=== PATIENT | female | born 1940 | race Caucasian/White ===

== ENCOUNTER 2017-03-27 08:17 | Inpatient (IN) | payer OTHER ==
[2017-03-27] VITALS (10 sets, daily range): BP systolic 77–135; BP diastolic 50–79
[~2017-03-27] VITALS: Ht 152.4 cm; Wt 83.0 kg
[~2017-03-27 08:17] MED LIST: AMARYL2 MG PO; ATENOLOL50 MG PO; BETHANECHOL CHL25 MG PO; CARDIZEM CD180 MG PO; CELEBREX200 MG PO; CLOPIDOGREL75 MG PO; COLACE50 MG PO; Coumadin,Jantoven PO; DEXAMETHASONE4 MG PO; Dulcolax PO; ELIQUIS5 MG PO; Ecotrin PO; FUROSEMIDE40 MG PO; Feosol PO; GLUCOPHAGE500 MG PO; Glucophage PO; HYDROCHLOROTHIA25 MG PO; HYDROCODON-ACE1 EAC8 PO; Hydrodiuril,Oretic,E PO; K-DUR10 MEQ PO; K-DUR20 MEQ PO; KLOR-CON M2020 MEQ PO; KLOR-CON SPRIN10 MEQ PO; LEVAQUIN750 MG PO; LEVOTHYROXINE125 MCG PO; LEVOTHYROXINE137 MCG PO; LEVOXYL175 MCG PO; LOPRESSOR25 MG PO; LOPRESSOR50 MG PO; LOSARTAN POTAS100 MG PO; Levothroid,Synthroid PO; MEDROL DOSEPAK4 MG PO; METFORMIN HCL500 MG PO; METFORMIN HCL850 MG PO; METOPROLOL TART25 MG PO; MUPIROCIN22 GM TP; NEURONTIN100 MG PO; NORCO 5/3251 TABLET PO; PERCOCET 5/31 TABLET PO; PRAVACHOL40 MG PO; PRAVASTATIN SOD40 MG PO; PROCHLORPERAZIN10 MG PO; Percocet 5/325,Endoc PO; Proventil,Ventolin H IH; Senokot S,Pericolace PO; TRAMADOL HCL50 MG PO; Tenormin PO; URECHOLINE25 MG PO; Urecholine PO; VALTREX1000 MG PO; VENTOLIN HFA18 GM IH; VICODIN 5-3001 EACH PO; Vitamin B-12 PO; Vitamin D PO; ZOFRAN4 MG PO; Zocor PO; celeBREX PO
[2017-03-27] MEDS ORDERED: COMPAZINE10 MG PO ×2 (09:07→18:18)
[2017-03-27 10:26] LABS: HEMATOCRIT 40.4 % (36.0-46.0); MCH 33.8 PG (29.0-34.0); MCHC 32.2 G/DL (30.0-36.0); MCV 104.9 FL (83-99); NRBC (%) 1.6 /100 WBC (0-0); RBC DIS.WIDTH-CV 19.9 % (11.8-14.6); RBC DIS.WIDTH-SD 69.2 % (39-53); RED BLOOD COUNT 3.85 M/uL (3.80-5.20)
[2017-03-27 10:30] LABS: WHITE BLOOD COUNT 11.3 K/uL (4.1-10.2)
[2017-03-27 10:31] LABS: PLATELET COUNT 134 K/uL (156-360)
[2017-03-27 10:36] LABS: CHLORIDE 101 mEq/L (99-109); POTASSIUM 3.8 mEq/L (3.7-5.4); SODIUM 139 mEq/L (136-147)
[2017-03-27 10:39] LABS: GLUCOSE 122 mg/dL (70-99)
[2017-03-27 10:40] LABS: ANION GAP 13 MEQ/L (2-14)
[2017-03-27 10:41] LABS: TOTAL BILIRUBIN 0.8 mg/dL (0.0-1.0)
[2017-03-27 10:42] LABS: ALKALINE PHOSPHATASE 108 IU/L (3-129); GFR ESTIMATE (CALCULATED) > 59 mL/min/
[2017-03-27 10:43] LABS: UREA NITROGEN (BUN) 23 mg/dL (9-23)
[2017-03-27 10:46] LABS: LIPASE 23 U/L (1.0-51.0)
[2017-03-27 10:48] LABS: TROP-I INTERPRETATION NEGATIVE; TROPONIN-I < 0.01 ng/mL (0.0-0.30)
[2017-03-27 11:54] LABS: BASE EXCESS -0.3 mEq/L (-3 to +3); BICARBONATE 28.5 mEq/L (22-26); CARBOXY HGB 2.7 % (0-5); COMMENTS - BLOOD GASES A+C+; DEVICE NC; METHEMOGLOBIN 0.8 % (0-1.5); O2 FLOW 5 L/MIN; PCO2 65 mm Hg (35-45); PO2 80 mm Hg (80-100); SITE RRA; pH 7.25 (7.35-7.45)
[2017-03-27 12:34] LABS: ADD MIUA? YES; BILIRUBIN NEGATIVE; BLOOD MODERATE; COLOR YELLOW ((YELLOW)); GLUCOSE (STRIP) NEGATIVE; KETONES NEGATIVE; LEUKOCYTES NEGATIVE; NITRITE NEGATIVE; PROTEIN (STRIP) >=500; SPECIFIC GRAVITY 1.026 (1.000-1.030); UROBILINOGEN 0.2 MG/DL (0.2-1.0)
[2017-03-27 12:42] LABS: BACTERIA NONE SEEN /HPF; EPITHELIAL CELLS RARE /HPF; HYALINE CASTS 0-5 /LPF; MUCUS TRACE /LPF; RED BLOOD CELLS 0-5 /HPF (0-5)
[2017-03-27 14:52] LABS: BASE EXCESS 0.3 mEq/L (-3 to +3); BICARBONATE 25.4 mEq/L (22-26); CARBOXY HGB 2.2 % (0-5)
[2017-03-27 14:53] LABS: COMMENTS - BLOOD GASES A+C+; DEVICE VENT; FI02 70 %; MECHANICAL RATE 16 resp/min; MODE AC; PCO2 42 mm Hg (35-45); PEEP 8 CM/H20; PO2 237 mm Hg (80-100); SITE LR; TIDAL VOLUME 450 ML; TOTAL RESP RATE 16 resp/min; pH 7.39 (7.35-7.45)
[2017-03-27] MEDS ORDERED: LASIX80 MG PO (18:14)
[2017-03-27] MEDS ORDERED: CARDIZEM CD,CA180 MG PO (18:14)
[2017-03-27] MEDS ORDERED: PROAIR HFA8.5 GM IH ×2 (18:15→18:16)
[2017-03-27] MEDS ORDERED: LEVO-T175 MCG PO (18:15)
[2017-03-27] MEDS ORDERED: LORTAB 7.5-3251 EACH PO (18:16)
[2017-03-27] MEDS ORDERED: LOPRESSOR50 MG PO (18:16)
[2017-03-27] MEDS ORDERED: KLOR-CON M2020 MEQ PO (18:19)
[2017-03-27] MEDS ORDERED: ASPIRIN325 MG PO (18:21)
[2017-03-27 18:24] LABS: METH RESISTANT S AUREUS PCR NEGATIVE (NEGATIVE)
[2017-03-27 18:26] LABS: PROBE CHECK PASS; SPECIMEN PROCESSING CONTROL PASS
[2017-03-27 21:41] LABS: CHLORIDE 101 mEq/L (99-109); POTASSIUM 4.5 mEq/L (3.7-5.4); SODIUM 138 mEq/L (136-147)
[2017-03-27 21:42] LABS: MAGNESIUM 1.6 mg/dL (1.3-2.7)
[2017-03-27 21:45] LABS: ANION GAP 15 MEQ/L (2-14)
[2017-03-27 21:47] LABS: GFR ESTIMATE (CALCULATED) 57 mL/min/
[2017-03-27 21:48] LABS: UREA NITROGEN (BUN) 25 mg/dL (9-23)
[2017-03-27 21:49] LABS: GLUCOSE 210 mg/dL (70-99)
[2017-03-28] VITALS (20 sets, daily range): BP systolic 87–134; BP diastolic 47–82
[2017-03-28 04:58] LABS: HEMATOCRIT 30.3 % (36.0-46.0); MCH 34.1 PG (29.0-34.0); MCV 103.4 FL (83-99); MEAN PLAT.VOLUME 10.6 uM^3 (9.5-12.4); NRBC (%) 1.2 /100 WBC (0-0); PLATELET COUNT 143 K/uL (156-360); RBC DIS.WIDTH-CV 19.9 % (11.8-14.6); RBC DIS.WIDTH-SD 67.3 % (39-53); WHITE BLOOD COUNT 10.8 K/uL (4.1-10.2)
[2017-03-28 04:59] LABS: RED BLOOD COUNT 2.93 M/uL (3.80-5.20)
[2017-03-28 05:07] LABS: INTER. NORMALIZED RATIO 1.3; PROTHROMBIN TIME 12.8 (9.2-11.2)
[2017-03-28 05:11] LABS: CHLORIDE 102 mEq/L (99-109); POTASSIUM 4.4 mEq/L (3.7-5.4); SODIUM 137 mEq/L (136-147)
[2017-03-28 05:13] LABS: GLUCOSE 209 mg/dL (70-99)
[2017-03-28 05:14] LABS: ANION GAP 13 MEQ/L (2-14)
[2017-03-28 05:17] LABS: GFR ESTIMATE (CALCULATED) 51 mL/min/
[2017-03-28 05:18] LABS: UREA NITROGEN (BUN) 29 mg/dL (9-23)
[2017-03-28 05:29] LABS: ALKALINE PHOSPHATASE 70 IU/L (3-129); MAGNESIUM 2.1 mg/dL (1.3-2.7); TOTAL BILIRUBIN 0.5 mg/dL (0.0-1.0)
[2017-03-28 10:28] LABS: BASE EXCESS -0.3 mEq/L (-3 to +3); BICARBONATE 25.9 mEq/L (22-26); CARBOXY HGB 2.3 % (0-5); METHEMOGLOBIN 1.5 % (0-1.5); pH 7.34 (7.35-7.45)
[2017-03-28 10:31] LABS: COMMENTS - BLOOD GASES RSBI=144; DEVICE 840; FI02 30 %; MODE TUBE COMPENSATION; PCO2 48 mm Hg (35-45); PO2 63 mm Hg (80-100); SITE LR
[2017-03-28 10:32] LABS: CONTINUOUS POS AIRWAY PRESSURE 5 cm H2O; TOTAL RESP RATE 35 resp/min
[2017-03-29] VITALS (23 sets, daily range): BP systolic 0–148; BP diastolic 0–85
[2017-03-29 02:18] LABS: HEMATOCRIT 31.9 % (36.0-46.0); MCH 33.9 PG (29.0-34.0); MCHC 32.9 G/DL (30.0-36.0); MCV 102.9 FL (83-99); NRBC (%) 0.5 /100 WBC (0-0); RBC DIS.WIDTH-CV 20.8 % (11.8-14.6); RBC DIS.WIDTH-SD 70.8 % (39-53)
[2017-03-29 02:20] LABS: PLATELET COUNT 188 K/uL (156-360); WHITE BLOOD COUNT 14.8 K/uL (4.1-10.2)
[2017-03-29 02:21] LABS: CHLORIDE 103 mEq/L (99-109); POTASSIUM 4.1 mEq/L (3.7-5.4); SODIUM 137 mEq/L (136-147)
[2017-03-29 02:22] LABS: CHLORIDE 104 mEq/L (99-109); MAGNESIUM 2.6 mg/dL (1.3-2.7); POTASSIUM 4.1 mEq/L (3.7-5.4); SODIUM 139 mEq/L (136-147)
[2017-03-29 02:23] LABS: GLUCOSE 210 mg/dL (70-99)
[2017-03-29 02:24] LABS: ANION GAP 13 MEQ/L (2-14); GLUCOSE 213 mg/dL (70-99)
[2017-03-29 02:25] LABS: ANION GAP 14 MEQ/L (2-14)
[2017-03-29 02:27] LABS: GFR ESTIMATE (CALCULATED) 33 mL/min/
[2017-03-29 02:28] LABS: GFR ESTIMATE (CALCULATED) 33 mL/min/; UREA NITROGEN (BUN) 42 mg/dL (9-23)
[2017-03-29 02:29] LABS: UREA NITROGEN (BUN) 38 mg/dL (9-23)
[2017-03-29 08:45] LABS: POINT-OF-CARE USER ID 612031313
[2017-03-29 12:30] LABS: POINT-OF-CARE USER ID 612031313
[2017-03-29 18:00] LABS: POINT-OF-CARE USER ID 612031313
[2017-03-30] VITALS (24 sets, daily range): BP systolic 111–143; BP diastolic 60–104
[2017-03-30 00:57] LABS: POINT-OF-CARE USER ID PHATLC
[2017-03-30 05:22] LABS: HEMATOCRIT 32.8 % (36.0-46.0); MCH 35.7 PG (29.0-34.0); MCHC 34.1 G/DL (30.0-36.0); MCV 104.5 FL (83-99); MEAN PLAT.VOLUME 10.3 uM^3 (9.5-12.4); NRBC (%) 0.3 /100 WBC (0-0); PLATELET COUNT 182 K/uL (156-360); RBC DIS.WIDTH-CV 21.2 % (11.8-14.6); RBC DIS.WIDTH-SD 77.1 % (39-53); RED BLOOD COUNT 3.14 M/uL (3.80-5.20)
[2017-03-30 05:23] LABS: POINT-OF-CARE METER ID UU13113731
[2017-03-30 05:48] LABS: ANION GAP 15 MEQ/L (2-14); CHLORIDE 101 MEQ/L (99-109); GFR ESTIMATE (CALCULATED) 27 mL/min/; GLUCOSE 209 mg/dL (70-99); MAGNESIUM 2.8 mg/dl (1.3-2.7); SAMPLE HEMOLYSIS CHECK 0; SAMPLE ICTERIC CHECK 0; SAMPLE LIPEMIA CHECK 0; SODIUM 137 MEQ/L (136-147); UREA NITROGEN (BUN) 54 mg/dL (9-23)
[2017-03-30 12:32] LABS: POINT-OF-CARE METER ID UU13113731
[2017-03-30 12:49] LABS: ADD MIUA? YES; BILIRUBIN NEGATIVE; BLOOD SMALL; COLOR YELLOW ((YELLOW)); GLUCOSE (STRIP) NEGATIVE; KETONES NEGATIVE; LEUKOCYTES NEGATIVE; NITRITE NEGATIVE; PROTEIN (STRIP) NEGATIVE; SPECIFIC GRAVITY 1.011 (1.000-1.030); UROBILINOGEN 0.2 MG/DL (0.2-1.0)
[2017-03-30 13:05] LABS: UR CREATININE CONCENTRATION 38.3 MG/DL
[2017-03-30 13:06] LABS: UR CREATININE CONCENTRATION 37.9 MG/DL
[2017-03-30 13:24] LABS: BACTERIA NONE SEEN /HPF; CALCIUM OXALATE CRYSTALS 1+ /HPF; EPITHELIAL CELLS RARE /HPF; MUCUS TRACE /LPF; RED BLOOD CELLS 15-20 /HPF (0-5); UCUL ADDED? NO; WHITE BLOOD CELLS 0-5 /HPF (0-5)
[2017-03-30 18:13] LABS: POINT-OF-CARE METER ID UU13113731
[2017-03-31] VITALS (18 sets, daily range): BP systolic 105–146; BP diastolic 54–97
[2017-03-31 00:33] LABS: POINT-OF-CARE METER ID UU13113731; POINT-OF-CARE USER ID PHATLC
[2017-03-31 05:52] LABS: POINT-OF-CARE METER ID UU14162636; POINT-OF-CARE USER ID PHATLC
[2017-03-31 06:13] LABS: HEMATOCRIT 36.2 % (36.0-46.0); MCH 35.3 PG (29.0-34.0); MCHC 33.4 G/DL (30.0-36.0); MCV 105.5 FL (83-99); NRBC (%) 0.2 /100 WBC (0-0); RBC DIS.WIDTH-CV 20.9 % (11.8-14.6); RBC DIS.WIDTH-SD 78.5 % (39-53); RED BLOOD COUNT 3.43 M/uL (3.80-5.20)
[2017-03-31 06:17] LABS: PLATELET COUNT 244 K/uL (156-360); WHITE BLOOD COUNT 21.1 K/uL (4.1-10.2)
[2017-03-31 06:44] LABS: ANION GAP 13 MEQ/L (2-14); CHLORIDE 98 MEQ/L (99-109); GFR ESTIMATE (CALCULATED) 33 mL/min/; GLUCOSE 211 mg/dL (70-99); MAGNESIUM 2.5 mg/dl (1.3-2.7); POTASSIUM 3.7 MEQ/L (3.7-5.4); SAMPLE HEMOLYSIS CHECK 0; SAMPLE ICTERIC CHECK 0; SAMPLE LIPEMIA CHECK 0; SODIUM 135 MEQ/L (136-147); UREA NITROGEN (BUN) 57 mg/dL (9-23)
[2017-03-31 11:15] LABS: BASE EXCESS -0.2 mEq/L (-3 to +3); CARBOXY HGB 2.6 % (0-5); METHEMOGLOBIN 1.5 % (0-1.5); PCO2 37 mm Hg (35-45); PO2 83 mm Hg (80-100); pH 7.42 (7.35-7.45)
[2017-03-31 11:16] LABS: COMMENTS - BLOOD GASES A+C+; CONTINUOUS POS AIRWAY PRESSURE 5 cm H2O; DEVICE VENT; FI02 30 %; MODE SPONT; PRES. SUPPORT 10 CM/H2O; SITE LR; TOTAL RESP RATE 23 resp/min
[2017-03-31 12:28] LABS: POINT-OF-CARE METER ID UU13113731
[2017-03-31 17:27] LABS: POINT-OF-CARE METER ID UU14162636
[2017-04-01] VITALS (23 sets, daily range): BP systolic 119–182; BP diastolic 67–107
[2017-04-01 01:00] LABS: POINT-OF-CARE METER ID UU13113731
[2017-04-01 06:01] LABS: HEMATOCRIT 38.8 % (36.0-46.0); MCHC 32.5 G/DL (30.0-36.0); MCV 104.6 FL (83-99); MEAN PLAT.VOLUME 10.5 uM^3 (9.5-12.4); NRBC (%) 0.1 /100 WBC (0-0); PLATELET COUNT 281 K/uL (156-360); RBC DIS.WIDTH-CV 20.7 % (11.8-14.6); RBC DIS.WIDTH-SD 77.3 % (39-53); RED BLOOD COUNT 3.71 M/uL (3.80-5.20); WHITE BLOOD COUNT 24.4 K/uL (4.1-10.2)
[2017-04-01 07:11] LABS: ANION GAP 15 MEQ/L (2-14); CHLORIDE 96 MEQ/L (99-109); GFR ESTIMATE (CALCULATED) 46 mL/min/; GLUCOSE 229 mg/dL (70-99); SAMPLE HEMOLYSIS CHECK 0; SAMPLE ICTERIC CHECK 0; SAMPLE LIPEMIA CHECK 0; SODIUM 137 MEQ/L (136-147); UREA NITROGEN (BUN) 49 mg/dL (9-23)
[2017-04-01 07:15] LABS: MAGNESIUM 2.1 mg/dl (1.3-2.7)
[2017-04-01 11:47] LABS: BASE EXCESS 6.4 mEq/L (-3 to +3); BICARBONATE 31.3 mEq/L (22-26); CARBOXY HGB 2.5 % (0-5); METHEMOGLOBIN 1.6 % (0-1.5); PCO2 45 mm Hg (35-45); PO2 89 mm Hg (80-100); pH 7.45 (7.35-7.45)
[2017-04-01 11:48] LABS: COMMENTS - BLOOD GASES NEG A+C+; DEVICE 980 PB; FI02 30 %; MODE TC; PEEP 5 CM/H20; SITE RR; TOTAL RESP RATE 18 resp/min
[2017-04-01 14:54] LABS: TYPE OF FLUID PLEURAL
[2017-04-01 15:33] LABS: BODY FLUID LDH 124 IU/L
[2017-04-01 16:08] LABS: BODY FLUID EOSINOPHILS 0 % (0-25); BODY FLUID RBC'S 4000 /MM^3 (0-100); BODY FLUID WBC'S 135 /MM^3 (0-500); COMMENT MODERATE MACROPHAGES FEW MESOTHELIALS; MONONUCLEAR WBC'S 55 %; POLYNUCLEAR WBC'S 45 % (0-25)
[2017-04-01 17:54] LABS: POINT-OF-CARE USER ID 606021424
[2017-04-02] VITALS (17 sets, daily range): BP systolic 133–192; BP diastolic 62–144
[2017-04-02 01:21] LABS: POINT-OF-CARE METER ID UU14162636
[2017-04-02 08:46] LABS: HEMATOCRIT 48.1 % (36.0-46.0); MCH 33.8 PG (29.0-34.0); MCV 105.7 FL (83-99); MEAN PLAT.VOLUME 10.2 uM^3 (9.5-12.4); NRBC (%) 0.1 /100 WBC (0-0); RBC DIS.WIDTH-CV 20.8 % (11.8-14.6); RBC DIS.WIDTH-SD 78.7 % (39-53)
[2017-04-02 08:47] LABS: PLATELET COUNT 441 K/uL (156-360); RED BLOOD COUNT 4.55 M/uL (3.80-5.20); WHITE BLOOD COUNT 32.7 K/uL (4.1-10.2)
[2017-04-02 09:17] LABS: CHLORIDE 99 mEq/L (99-109); SODIUM 140 mEq/L (136-147)
[2017-04-02 09:20] LABS: GLUCOSE 143 mg/dL (70-99)
[2017-04-02 09:21] LABS: ANION GAP 12 MEQ/L (2-14)
[2017-04-02 09:23] LABS: GFR ESTIMATE (CALCULATED) 51 mL/min/
[2017-04-02 09:24] LABS: UREA NITROGEN (BUN) 47 mg/dL (9-23)
[2017-04-02 09:25] LABS: MAGNESIUM 2.1 mg/dL (1.3-2.7); POTASSIUM 4.2 mEq/L (3.7-5.4)
[2017-04-02 11:15] LABS: URIC ACID 12.9 mg/dL (3.1-9.2)
[2017-04-02 12:52] LABS: POINT-OF-CARE METER ID UU14174217
[2017-04-02 18:24] LABS: POINT-OF-CARE METER ID UU14174217
[2017-04-02 23:25] LABS: POINT-OF-CARE METER ID UU13113731
[2017-04-03] VITALS (12 sets, daily range): BP systolic 132–192; BP diastolic 78–110
[2017-04-03 07:13] LABS: HEMATOCRIT 45.8 % (36.0-46.0); MCH 34.3 PG (29.0-34.0); MCHC 31.9 G/DL (30.0-36.0); MCV 107.5 FL (83-99); MEAN PLAT.VOLUME 10.3 uM^3 (9.5-12.4); NRBC (%) 0.1 /100 WBC (0-0); PLATELET COUNT 487 K/uL (156-360); RBC DIS.WIDTH-CV 19.9 % (11.8-14.6); RBC DIS.WIDTH-SD 77.3 % (39-53); RED BLOOD COUNT 4.26 M/uL (3.80-5.20); WHITE BLOOD COUNT 26.9 K/uL (4.1-10.2)
[2017-04-03 07:49] LABS: ANION GAP 12 MEQ/L (2-14); CHLORIDE 97 MEQ/L (99-109); GFR ESTIMATE (CALCULATED) > 59 mL/min/; GLUCOSE 122 mg/dL (70-99); POTASSIUM 3.9 MEQ/L (3.7-5.4); SAMPLE HEMOLYSIS CHECK 0; SAMPLE ICTERIC CHECK 0; SAMPLE LIPEMIA CHECK 0; SODIUM 146 MEQ/L (136-147); UREA NITROGEN (BUN) 45 mg/dL (9-23)
[2017-04-03 12:56] LABS: POINT-OF-CARE METER ID UU14174217
[2017-04-03 16:07] LABS: POINT-OF-CARE METER ID UU14174217; POINT-OF-CARE USER ID 606021424
[2017-04-03 16:07] LABS: BASE EXCESS 11.3 mEq/L (-3 to +3); BICARBONATE 39.3 mEq/L (22-26); CARBOXY HGB 2.4 % (0-5); COMMENTS - BLOOD GASES A+C+; DEVICE BIPAP; METHEMOGLOBIN 1.4 % (0-1.5); O2 FLOW 15 L/MIN; PCO2 65 mm Hg (35-45); PO2 110 mm Hg (80-100); SITE RR; pH 7.39 (7.35-7.45)
[2017-04-03 16:47] LABS: ADD MIUA? YES; BILIRUBIN NEGATIVE; BLOOD MODERATE; COLOR YELLOW ((YELLOW)); GLUCOSE (STRIP) NEGATIVE; KETONES NEGATIVE; LEUKOCYTES NEGATIVE; NITRITE NEGATIVE; PROTEIN (STRIP) >=500; SPECIFIC GRAVITY 1.018 (1.000-1.030); UROBILINOGEN 0.2 MG/DL (0.2-1.0)
[2017-04-03 17:38] LABS: BACTERIA RARE /HPF; BUDDING YEAST 2+; EPITHELIAL CELLS RARE /HPF; MUCUS TRACE /LPF; RED BLOOD CELLS 40-50 /HPF (0-5); UCUL ADDED? NO; WHITE BLOOD CELLS 15-20 /HPF (0-5)
[2017-04-03 23:29] LABS: POINT-OF-CARE METER ID UU14174217
[2017-04-04] VITALS (12 sets, daily range): BP systolic 107–156; BP diastolic 63–90
[2017-04-04 06:25] LABS: POINT-OF-CARE METER ID UU14174217
[2017-04-04 07:03] LABS: HEMATOCRIT 42.4 % (36.0-46.0); MCHC 31.6 G/DL (30.0-36.0); MCV 107.6 FL (83-99); MEAN PLAT.VOLUME 10.2 uM^3 (9.5-12.4); NRBC (%) 0.3 /100 WBC (0-0); PLATELET COUNT 429 K/uL (156-360); RBC DIS.WIDTH-CV 18.9 % (11.8-14.6); RBC DIS.WIDTH-SD 75.1 % (39-53); RED BLOOD COUNT 3.94 M/uL (3.80-5.20); WHITE BLOOD COUNT 13.9 K/uL (4.1-10.2)
[2017-04-04 07:16] LABS: ANION GAP 13 MEQ/L (2-14); CHLORIDE 94 MEQ/L (99-109); GFR ESTIMATE (CALCULATED) > 59 mL/min/; MAGNESIUM 1.9 mg/dl (1.3-2.7); POTASSIUM 3.6 MEQ/L (3.7-5.4); SAMPLE HEMOLYSIS CHECK 0; SAMPLE ICTERIC CHECK 0; SAMPLE LIPEMIA CHECK 0; SODIUM 144 MEQ/L (136-147); UREA NITROGEN (BUN) 46 mg/dL (9-23)
[2017-04-04 07:18] LABS: GLUCOSE 188 mg/dL (70-99)
[2017-04-04 12:32] LABS: POINT-OF-CARE METER ID UU14174217
[2017-04-04 22:43] LABS: POINT-OF-CARE METER ID UU13113731
[2017-04-05] VITALS: BP 165/87
[2017-04-05 06:03] LABS: MCH 33.5 PG (29.0-34.0); MCV 104.7 FL (83-99); MEAN PLAT.VOLUME 9.9 uM^3 (9.5-12.4); NRBC (%) 0.2 /100 WBC (0-0); PLATELET COUNT 394 K/uL (156-360); RBC DIS.WIDTH-CV 18.4 % (11.8-14.6); RBC DIS.WIDTH-SD 70.8 % (39-53); RED BLOOD COUNT 3.82 M/uL (3.80-5.20); WHITE BLOOD COUNT 11.1 K/uL (4.1-10.2)
[2017-04-05 06:23] LABS: ANION GAP 11 MEQ/L (2-14); CHLORIDE 94 MEQ/L (99-109); GFR ESTIMATE (CALCULATED) > 59 mL/min/; GLUCOSE 183 mg/dL (70-99); MAGNESIUM 1.8 mg/dl (1.3-2.7); POTASSIUM 3.2 MEQ/L (3.7-5.4); SAMPLE HEMOLYSIS CHECK 0; SAMPLE ICTERIC CHECK 0; SAMPLE LIPEMIA CHECK 0; SODIUM 143 MEQ/L (136-147); UREA NITROGEN (BUN) 50 mg/dL (9-23)
[2017-04-05 07:35] LABS: ABS NEUTROPHIL COUNT 9.8; ANISOCYTOSIS 2+; BAND NEUTROPHILS 0.9 % (0-8.0); EOSINOPHIL ABS CT 0; INSTRUMENT ABS NEUTROPHIL CT 9.4 K/uL; LYMPHOCYTES 2.6 % (15.0-45.0); MACROCYTES 2+; METAMYELOCYTES 0.9 %; MICROCYTOSIS 1+; PLAT.SUFFICIENCY ADEQUATE; SPHEROCYTES 1+
[2017-04-05 08:00] VITALS: BP 147/74
[2017-04-05 08:42] LABS: SEG.NEUTROPHILS 87.7 % (46.0-76.0)
[2017-04-05 12:00] VITALS: BP 151/70
[2017-04-05 15:26] LABS: POINT-OF-CARE METER ID UU14174217
[2017-04-05 16:00] VITALS: BP 181/89
[2017-04-05 18:00] VITALS: BP 138/73
[2017-04-05 20:00] VITALS: BP 173/80
[2017-04-06] VITALS (8 sets, daily range): BP systolic 135–166; BP diastolic 70–87
[2017-04-06 07:17] LABS: ANION GAP 9 MEQ/L (2-14); CHLORIDE 94 MEQ/L (99-109); GFR ESTIMATE (CALCULATED) 57 mL/min/; GLUCOSE 247 mg/dL (70-99); MAGNESIUM 1.8 mg/dl (1.3-2.7); SAMPLE HEMOLYSIS CHECK 0; SAMPLE ICTERIC CHECK 0; SAMPLE LIPEMIA CHECK 0; SODIUM 139 MEQ/L (136-147); UREA NITROGEN (BUN) 54 mg/dL (9-23)
[2017-04-06 07:23] LABS: HEMATOCRIT 38.5 % (36.0-46.0); MCH 34.3 PG (29.0-34.0); MCHC 32.2 G/DL (30.0-36.0); MCV 106.4 FL (83-99); MEAN PLAT.VOLUME 10.1 uM^3 (9.5-12.4); NRBC (%) 0.1 /100 WBC (0-0); PLATELET COUNT 436 K/uL (156-360); RBC DIS.WIDTH-CV 18.6 % (11.8-14.6); RBC DIS.WIDTH-SD 73.4 % (39-53); RED BLOOD COUNT 3.62 M/uL (3.80-5.20); WHITE BLOOD COUNT 19.7 K/uL (4.1-10.2)
[2017-04-06 09:04] LABS: POINT-OF-CARE METER ID UU13113731
[2017-04-06 11:37] LABS: POINT-OF-CARE METER ID UU13113731
[2017-04-06 16:38] LABS: POINT-OF-CARE METER ID UU13113731
[2017-04-07 03:55] VITALS: BP 147/89
[2017-04-07 06:42] LABS: HEMATOCRIT 37.5 % (36.0-46.0); MCH 33.4 PG (29.0-34.0); MCHC 31.2 G/DL (30.0-36.0); MCV 107.1 FL (83-99); MEAN PLAT.VOLUME 9.8 uM^3 (9.5-12.4); NRBC (%) 0.1 /100 WBC (0-0); PLATELET COUNT 452 K/uL (156-360); RBC DIS.WIDTH-CV 18.6 % (11.8-14.6); RBC DIS.WIDTH-SD 73.4 % (39-53)
[2017-04-07 06:47] LABS: WHITE BLOOD COUNT 30.6 K/uL (4.1-10.2)
[2017-04-07 07:10] LABS: ANION GAP 12 MEQ/L (2-14); CHLORIDE 94 MEQ/L (99-109); GFR ESTIMATE (CALCULATED) > 59 mL/min/; GLUCOSE 200 mg/dL (70-99); MAGNESIUM 1.8 mg/dl (1.3-2.7); POTASSIUM 3.8 MEQ/L (3.7-5.4); SAMPLE HEMOLYSIS CHECK 0; SAMPLE ICTERIC CHECK 0; SAMPLE LIPEMIA CHECK 0; SODIUM 141 MEQ/L (136-147); UREA NITROGEN (BUN) 74 mg/dL (9-23)
[2017-04-07 07:34] LABS: ABS NEUTROPHIL COUNT 27.4; ANISOCYTOSIS 2+; ATYPICAL LYMPHOCYTE 3.5 %; BAND NEUTROPHILS 0.4 % (0-8.0); EOSINOPHIL ABS CT 0; INSTRUMENT ABS NEUTROPHIL CT 25.9 K/uL; LYMPHOCYTES 0.9 % (15.0-45.0); MACROCYTES 2+; PLAT.SUFFICIENCY ADEQUATE
[2017-04-07 07:47] VITALS: BP 161/94
[2017-04-07 11:08] VITALS: BP 138/79
[2017-04-07 15:20] VITALS: BP 139/69
[2017-04-07 20:03] VITALS: BP 134/76
[2017-04-08] VITALS (8 sets, daily range): BP systolic 98–150; BP diastolic 50–76
[2017-04-08 06:30] LABS: HEMATOCRIT 30.3 % (36.0-46.0); MCH 34.6 PG (29.0-34.0); MCV 108.2 FL (83-99); MEAN PLAT.VOLUME 10.2 uM^3 (9.5-12.4); NRBC (%) 0.2 /100 WBC (0-0); PLATELET COUNT 440 K/uL (156-360); RBC DIS.WIDTH-CV 18.8 % (11.8-14.6); RBC DIS.WIDTH-SD 74.4 % (39-53); WHITE BLOOD COUNT 38.5 K/uL (4.1-10.2)
[2017-04-08 06:51] LABS: ANION GAP 7 MEQ/L (2-14); CHLORIDE 97 MEQ/L (99-109); GFR ESTIMATE (CALCULATED) > 59 mL/min/; GLUCOSE 154 mg/dL (70-99); MAGNESIUM 1.7 mg/dl (1.3-2.7); POTASSIUM 4.1 MEQ/L (3.7-5.4); SAMPLE HEMOLYSIS CHECK 0; SAMPLE ICTERIC CHECK 0; SAMPLE LIPEMIA CHECK 0; SODIUM 141 MEQ/L (136-147); UREA NITROGEN (BUN) 94 mg/dL (9-23)
[2017-04-08 07:35] LABS: ABS NEUTROPHIL COUNT 34.1; ANISOCYTOSIS 2+; BAND NEUTROPHILS 2.6 % (0-8.0); EOSINOPHIL ABS CT 0; HYPOCHROMASIA 1+; INSTRUMENT ABS NEUTROPHIL CT 31.3 K/uL; LYMPHOCYTES 2.2 % (15.0-45.0); MACROCYTES 2+; METAMYELOCYTES 0.4 %; MYELOCYTES 1.3 %; OVALOCYTES 1+; PLAT.SUFFICIENCY ADEQUATE; PLATELET CLUMPS PRESENT - PLATELET COUNT APPEARS ADQ.; SEG.NEUTROPHILS 86.1 % (46.0-76.0); SPHEROCYTES 2+; STOMATOCYTES 2+; TARGET CELLS 1+; TEAR DROP CELLS 1+
[2017-04-08 11:07] LABS: TYPE OF FLUID PLEURAL
[2017-04-08 11:28] LABS: BODY FLUID LDH 189 IU/L
[2017-04-08 11:29] LABS: BODY FLUID PROTEIN < 3 G/DL
[2017-04-08 11:49] LABS: BODY FLUID EOSINOPHILS 6 % (0-25); BODY FLUID RBC'S < 1000 /MM^3 (0-100); BODY FLUID WBC'S 302 /MM^3 (0-500); MONONUCLEAR WBC'S 17 %; POLYNUCLEAR WBC'S 77 % (0-25)
[2017-04-08 12:21] LABS: POINT-OF-CARE METER ID UU13113717
[2017-04-09 02:37] LABS: POINT-OF-CARE METER ID UU14188625; POINT-OF-CARE USER ID BHSKTD
[2017-04-09 03:35] VITALS: BP 125/66
[2017-04-09 07:22] LABS: POINT-OF-CARE METER ID UU14174225
[2017-04-09 07:36] VITALS: BP 113/59
[2017-04-09 10:38] LABS: BASOPHIL COUNT 0.1 K/uL (0-0.1); EOSINOPHIL (%) 0.1 % (0-5); IMMATURE GRANULOCYTE (%) 4.5 % (0.0-0.7); IMMATURE GRANULOCYTE COUNT 1.9 K/uL; LYMPHOCYTE COUNT 1.1 K/uL (1.0-2.8); MEAN PLAT.VOLUME 10.5 uM^3 (9.5-12.4); MONOCYTE (%) 7.6 % (3-12); MONOCYTE COUNT 3.2 K/uL (0-0.8); PLATELET COUNT 375 K/uL (156-360)
[2017-04-09 10:47] LABS: HEMATOCRIT 27.4 % (36.0-46.0); MCH 34.4 PG (29.0-34.0); MCHC 31.8 G/DL (30.0-36.0); MCV 108.3 FL (83-99); NRBC (%) 0.3 /100 WBC (0-0); RBC DIS.WIDTH-CV 18.9 % (11.8-14.6); RBC DIS.WIDTH-SD 76.4 % (39-53); RED BLOOD COUNT 2.53 M/uL (3.80-5.20)
[2017-04-09 10:50] LABS: WHITE BLOOD COUNT 42.4 K/uL (4.1-10.2)
[2017-04-09 11:00] LABS: ANION GAP 9 MEQ/L (2-14); CHLORIDE 93 MEQ/L (99-109); GFR ESTIMATE (CALCULATED) 57 mL/min/; GLUCOSE 207 mg/dL (70-99); MAGNESIUM 1.6 mg/dl (1.3-2.7); POTASSIUM 4.1 MEQ/L (3.7-5.4); SAMPLE HEMOLYSIS CHECK 0; SAMPLE ICTERIC CHECK 0; SAMPLE LIPEMIA CHECK 0; SODIUM 139 MEQ/L (136-147); UREA NITROGEN (BUN) 86 mg/dL (9-23)
[2017-04-09 11:13] VITALS: BP 115/65
[2017-04-09 11:15] LABS: POINT-OF-CARE METER ID UU14174225
[2017-04-09 13:19] LABS: IMM.RETIC FRACTION 43.7 % (3-19); RETIC HGB EQUIVALENT 39.8 (28-36); RETICULOCYTE COUNT 2.9 % (0.5-1.8)
[2017-04-09 13:26] LABS: IRON 152 MCG/DL (35-150)
[2017-04-09 14:06] LABS: FERRITIN 538 NG/ML (10-291)
[2017-04-09 14:43] LABS: LACTATE DEHYDROGENASE 466 IU/L (20-246)
[2017-04-09 15:14] VITALS: BP 126/58
[2017-04-09 16:21] LABS: POINT-OF-CARE METER ID UU13113717
[2017-04-09 20:13] VITALS: BP 122/60
[2017-04-09 21:14] LABS: POINT-OF-CARE METER ID UU13113717
[2017-04-10] VITALS (7 sets, daily range): BP systolic 109–142; BP diastolic 63–74
[2017-04-10 06:13] LABS: MEAN PLAT.VOLUME 10.1 uM^3 (9.5-12.4); PLATELET COUNT 293 K/uL (156-360)
[2017-04-10 06:30] LABS: HEMATOCRIT 26.2 % (36.0-46.0); MCH 34.8 PG (29.0-34.0); MCHC 32.4 G/DL (30.0-36.0); MCV 107.4 FL (83-99); NRBC (%) 0.6 /100 WBC (0-0); RBC DIS.WIDTH-SD 73.7 % (39-53); RED BLOOD COUNT 2.44 M/uL (3.80-5.20)
[2017-04-10 06:37] LABS: WHITE BLOOD COUNT 36.5 K/uL (4.1-10.2)
[2017-04-10 06:40] LABS: ANION GAP 9 MEQ/L (2-14); CHLORIDE 94 MEQ/L (99-109); GFR ESTIMATE (CALCULATED) > 59 mL/min/; MAGNESIUM 1.7 mg/dl (1.3-2.7); POTASSIUM 3.9 MEQ/L (3.7-5.4); SAMPLE HEMOLYSIS CHECK 0; SAMPLE ICTERIC CHECK 0; SAMPLE LIPEMIA CHECK 0; SODIUM 140 MEQ/L (136-147); UREA NITROGEN (BUN) 82 mg/dL (9-23)
[2017-04-10 06:41] LABS: GLUCOSE 110 mg/dL (70-99)
[2017-04-10 07:15] LABS: POINT-OF-CARE METER ID UU14188625
[2017-04-10 08:16] LABS: ALKALINE PHOSPHATASE 111 IU/L (3-129); DIRECT BILIRUBIN 0.2 mg/dL (0.0-0.3); TOTAL BILIRUBIN 0.6 MG/DL (0.0-1.0)
[2017-04-10 08:30] LABS: ABS NEUTROPHIL COUNT 30.4; BAND NEUTROPHILS 0.9 % (0-8.0); EOSINOPHIL ABS CT 0; INSTRUMENT ABS NEUTROPHIL CT 30.2 K/uL; LYMPHOCYTES 0.9 % (15.0-45.0); MYELOCYTES 3.5 %; NUCLEATED RBC'S 0.9; SEG.NEUTROPHILS 82.3 % (46.0-76.0)
[2017-04-10 16:28] LABS: POINT-OF-CARE METER ID UU13113717
[2017-04-11 03:44] VITALS: BP 130/69
[2017-04-11 06:37] LABS: MEAN PLAT.VOLUME 10.3 uM^3 (9.5-12.4); PLATELET COUNT 307 K/uL (156-360)
[2017-04-11 06:49] LABS: HEMATOCRIT 26.4 % (36.0-46.0); MCH 34.7 PG (29.0-34.0); MCHC 32.2 G/DL (30.0-36.0); MCV 107.8 FL (83-99); NRBC (%) 0.7 /100 WBC (0-0); RBC DIS.WIDTH-CV 19.5 % (11.8-14.6); RBC DIS.WIDTH-SD 75.8 % (39-53); RED BLOOD COUNT 2.45 M/uL (3.80-5.20)
[2017-04-11 06:59] LABS: WHITE BLOOD COUNT 35.7 K/uL (4.1-10.2)
[2017-04-11 07:11] LABS: ANION GAP 8 MEQ/L (2-14); CHLORIDE 94 MEQ/L (99-109); GFR ESTIMATE (CALCULATED) > 59 mL/min/; SAMPLE HEMOLYSIS CHECK 0; SAMPLE ICTERIC CHECK 0; SAMPLE LIPEMIA CHECK 0; SODIUM 141 MEQ/L (136-147); UREA NITROGEN (BUN) 79 mg/dL (9-23)
[2017-04-11 07:12] LABS: GLUCOSE 70 mg/dL (70-99)
[2017-04-11 07:54] VITALS: BP 142/75
[2017-04-11 15:27] VITALS: BP 126/74
[2017-04-11 17:15] LABS: POINT-OF-CARE METER ID UU14188625
[2017-04-11 19:58] VITALS: BP 121/57
[2017-04-11 21:03] LABS: POINT-OF-CARE METER ID UU14188625
[2017-04-11 23:46] VITALS: BP 125/64
[2017-04-12] VITALS (7 sets, daily range): BP systolic 108–137; BP diastolic 55–71
[2017-04-12 07:17] LABS: ANION GAP 7 MEQ/L (2-14); CHLORIDE 96 MEQ/L (99-109); GFR ESTIMATE (CALCULATED) 51 mL/min/; POTASSIUM 4.1 MEQ/L (3.7-5.4); SAMPLE HEMOLYSIS CHECK 0; SAMPLE ICTERIC CHECK 0; SAMPLE LIPEMIA CHECK 0; SODIUM 143 MEQ/L (136-147); UREA NITROGEN (BUN) 69 mg/dL (9-23)
[2017-04-12 07:18] LABS: GLUCOSE 95 mg/dL (70-99)
[2017-04-12 12:00] LABS: POINT-OF-CARE METER ID UU14174225
[2017-04-13] VITALS (9 sets, daily range): BP systolic 101–130; BP diastolic 57–68
[2017-04-13 07:50] LABS: ANION GAP 7 MEQ/L (2-14); CHLORIDE 95 MEQ/L (99-109); GFR ESTIMATE (CALCULATED) > 59 mL/min/; GLUCOSE 104 mg/dL (70-99); POTASSIUM 4.4 MEQ/L (3.7-5.4); SAMPLE HEMOLYSIS CHECK 0; SAMPLE ICTERIC CHECK 0; SAMPLE LIPEMIA CHECK 0; SODIUM 140 MEQ/L (136-147); UREA NITROGEN (BUN) 60 mg/dL (9-23)
[2017-04-13 08:03] LABS: POINT-OF-CARE METER ID UU14174225
[2017-04-13 08:05] LABS: HEMATOCRIT 25.5 % (36.0-46.0); MCH 35.4 PG (29.0-34.0); MCHC 31.4 G/DL (30.0-36.0); MEAN PLAT.VOLUME 10.5 uM^3 (9.5-12.4); NRBC (%) 1.8 /100 WBC (0-0); PLATELET COUNT 218 K/uL (156-360); RBC DIS.WIDTH-CV 21.2 % (11.8-14.6); RBC DIS.WIDTH-SD 81.3 % (39-53); RED BLOOD COUNT 2.26 M/uL (3.80-5.20); WHITE BLOOD COUNT 22.8 K/uL (4.1-10.2)
[2017-04-13 08:06] LABS: MCV 112.8 FL (83-99)
[2017-04-13 14:37] LABS: BASE EXCESS 14.5 mEq/L (-3 to +3); BICARBONATE 41.5 mEq/L (22-26); CARBOXY HGB 2.8 % (0-5); COMMENTS - BLOOD GASES A+C+; DEVICE VM; METHEMOGLOBIN 1.8 % (0-1.5); O2 FLOW 12 L/MIN; PCO2 67 mm Hg (35-45); PO2 48 mm Hg (80-100); SITE LRA
[2017-04-13 14:38] LABS: FI02 50 %; TOTAL RESP RATE 35 resp/min
[2017-04-13 15:19] LABS: TROP-I INTERPRETATION NEGATIVE; TROPONIN-I 0.01 ng/mL (0.0-0.30)
[2017-04-13 16:53] LABS: METH RESISTANT S AUREUS PCR POSITIVE (NEGATIVE)
[2017-04-13 17:01] LABS: PROBE CHECK PASS
[2017-04-13 22:10] LABS: POINT-OF-CARE METER ID UU13113803
[2017-04-14] VITALS (7 sets, daily range): BP systolic 88–126; BP diastolic 41–77
[2017-04-14 05:30] LABS: HEMATOCRIT 27.7 % (36.0-46.0); MCH 34.6 PG (29.0-34.0); MCHC 30.3 G/DL (30.0-36.0); MEAN PLAT.VOLUME 9.9 uM^3 (9.5-12.4); NRBC (%) 1.5 /100 WBC (0-0); PLATELET COUNT 185 K/uL (156-360); RBC DIS.WIDTH-CV 21.3 % (11.8-14.6); RBC DIS.WIDTH-SD 86.3 % (39-53); RED BLOOD COUNT 2.43 M/uL (3.80-5.20); WHITE BLOOD COUNT 17.9 K/uL (4.1-10.2)
[2017-04-14 05:54] LABS: ANION GAP 6 MEQ/L (2-14); CHLORIDE 94 MEQ/L (99-109); GFR ESTIMATE (CALCULATED) > 59 mL/min/; POTASSIUM 4.6 MEQ/L (3.7-5.4); SAMPLE HEMOLYSIS CHECK 0; SAMPLE ICTERIC CHECK 0; SAMPLE LIPEMIA CHECK 0; SODIUM 138 MEQ/L (136-147); UREA NITROGEN (BUN) 51 mg/dL (9-23)
[2017-04-14 05:58] LABS: GLUCOSE 237 mg/dL (70-99)
[2017-04-14 12:58] LABS: POINT-OF-CARE METER ID UU13113748
[2017-04-15 08:00] VITALS: BP 143/70
[2017-04-15 09:25] LABS: POINT-OF-CARE METER ID UU13113748; POINT-OF-CARE USER ID AGYTJR
[2017-04-15 09:41] LABS: HEMATOCRIT 26.4 % (36.0-46.0); MCH 35.4 PG (29.0-34.0); MCHC 30.7 G/DL (30.0-36.0); MCV 115.3 FL (83-99); MEAN PLAT.VOLUME 10.6 uM^3 (9.5-12.4); NRBC (%) 0.4 /100 WBC (0-0); PLATELET COUNT 204 K/uL (156-360); RBC DIS.WIDTH-CV 21.9 % (11.8-14.6); RBC DIS.WIDTH-SD 90.2 % (39-53); RED BLOOD COUNT 2.29 M/uL (3.80-5.20); WHITE BLOOD COUNT 21.3 K/uL (4.1-10.2)
[2017-04-15 10:12] LABS: ANION GAP 10 MEQ/L (2-14); CHLORIDE 96 MEQ/L (99-109); GFR ESTIMATE (CALCULATED) > 59 mL/min/; GLUCOSE 118 mg/dL (70-99); POTASSIUM 4.2 MEQ/L (3.7-5.4); SAMPLE HEMOLYSIS CHECK 0; SAMPLE ICTERIC CHECK 0; SAMPLE LIPEMIA CHECK 0; SODIUM 140 MEQ/L (136-147); UREA NITROGEN (BUN) 52 mg/dL (9-23)
[2017-04-15 10:49] LABS: ANISOCYTOSIS 2+; EOSINOPHIL (%) 0 % (0-5); IMMATURE GRANULOCYTE (%) 3.2 % (0.0-0.7); IMMATURE GRANULOCYTE COUNT 0.7 K/uL; INSTRUMENT ABS NEUTROPHIL CT 19.4 K/uL; LYMPHOCYTE COUNT 0.5 K/uL (1.0-2.8); MACROCYTES 2+; MICROCYTOSIS 1+; MONOCYTE (%) 3.7 % (3-12); MONOCYTE COUNT 0.8 K/uL (0-0.8); NEUTROPHIL (%) 90.8 % (45-76); NEUTROPHIL COUNT 19.4 K/uL (1.8-6.4); OVALOCYTES 1+; POLYCHROMASIA 2+; TEAR DROP CELLS 1+
[2017-04-15 12:00] VITALS: BP 109/53
[2017-04-15 12:43] LABS: POINT-OF-CARE METER ID UU13113748; POINT-OF-CARE USER ID AGYTJR
[2017-04-15 14:00] VITALS: BP 137/60
[2017-04-15 16:00] VITALS: BP 116/62
[2017-04-15 17:15] LABS: POINT-OF-CARE METER ID UU13113748; POINT-OF-CARE USER ID AGYTJR
[2017-04-15 18:00] VITALS: BP 106/45
[2017-04-15 20:55] VITALS: BP 126/70
[2017-04-15 21:29] LABS: POINT-OF-CARE METER ID UU13113725; POINT-OF-CARE USER ID 609231305
[2017-04-16 00:03] VITALS: BP 108/53
[2017-04-16 06:11] LABS: POINT-OF-CARE USER ID 609231305
[2017-04-16 08:26] VITALS: BP 142/67
[2017-04-16] MEDS ORDERED: DOCUSATE SODIU100 MG PO (10:00)
[2017-04-16] MEDS ORDERED: PRAVASTATIN SOD40 MG PO (10:01)
[2017-04-16] MEDS ORDERED: LOPRESSOR50 MG PO (10:01)
[2017-04-16] MEDS ORDERED: ELIQUIS5 MG PO (10:01)
[2017-04-16] MEDS ORDERED: ATIVAN0.5 MG PO (10:02)
[2017-04-16] MEDS ORDERED: AUGMENTIN875 MG PO (10:02)
[2017-04-16] MEDS ORDERED: MORPHINE CON20 MG/M1 PO (10:02)
[2017-04-16 11:56] LABS: POINT-OF-CARE METER ID UU13113725
[2017-04-16 16:09] VITALS: BP 147/67
[2017-04-16 22:52] VITALS: BP 128/75
[2017-04-17 04:51] LABS: POINT-OF-CARE METER ID UU13113725
[2017-04-17 07:02] VITALS: BP 121/66
[2017-04-17 12:04] LABS: POINT-OF-CARE METER ID UU13113725
[2017-04-17] MEDS ORDERED: HYOSCYAMINE0.125 M2 PO (12:11)
== END 2017-04-17 15:45 | disposition hospice, home (50) | DRG 207 ==
LOC: EME 08:17 → 5SOUTH 14:02 → EDOF 14:02 → 4WEST 14:02 → 5SOUTH 04-06 16:35 → 4WEST 04-13 15:07 → 5EAST 04-15 20:49
PROVIDERS: Emergency Medicine; Internal Medicine; Internal Medicine Critical Care Medicine; Internal Medicine Nephrology; Internal Medicine Pulmonary Disease; Nurse Practitioner Family; Physician Assistant Medical; Specialist; Surgery
PROC: 5A1955Z Respiratory Ventilation, Greater than 96 Consecutive Hours (ICD-10-PCS; 2017-03-27)
PROC: 0W993ZZ Drainage of Right Pleural Cavity, Percutaneous Approach (ICD-10-PCS; principal; 2017-04-01)
PROC: 0W993ZZ Drainage of Right Pleural Cavity, Percutaneous Approach (ICD-10-PCS; 2017-04-04)
PROC: 0W993ZX Drainage of Right Pleural Cavity, Percutaneous Approach, Diagnostic (ICD-10-PCS; 2017-04-08)
PROC: 0W993ZX Drainage of Right Pleural Cavity, Percutaneous Approach, Diagnostic (ICD-10-PCS; 2017-04-13)
DX: J96.01 Acute respiratory failure with hypoxia (principal); J69.0 Pneumonitis due to inhalation of food and vomit; N17.9 Acute kidney failure, unspecified; J90 Pleural effusion, not elsewhere classified; I48.2 Chronic atrial fibrillation; J44.9 Chronic obstructive pulmonary disease, unspecified; I48.3 Typical atrial flutter; I11.0 Hypertensive heart disease with heart failure; G47.33 Obstructive sleep apnea (adult) (pediatric); E87.2 Acidosis; D63.8 Anemia in other chronic diseases classified elsewhere; D75.89 Other specified diseases of blood and blood-forming organs; E11.9 Type 2 diabetes mellitus without complications; C56.9 Malignant neoplasm of unspecified ovary; E87.4 Mixed disorder of acid-base balance; E78.5 Hyperlipidemia, unspecified; J96.02 Acute respiratory failure with hypercapnia; I25.10 Atherosclerotic heart disease of native coronary artery without angina pectoris; Z66 Do not resuscitate; Z51.5 Encounter for palliative care; J98.11 Atelectasis; E03.9 Hypothyroidism, unspecified; E87.6 Hypokalemia; I35.0 Nonrheumatic aortic (valve) stenosis; F41.9 Anxiety disorder, unspecified; N04.9 Nephrotic syndrome with unspecified morphologic changes; Z85.43 Personal history of malignant neoplasm of ovary; Z68.34 Body mass index [BMI] 34.0-34.9, adult; Z98.61 Coronary angioplasty status; Z87.891 Personal history of nicotine dependence; Z96.649 Presence of unspecified artificial hip joint; Z92.21 Personal history of antineoplastic chemotherapy
CPT/HCPCS: 36600; 71010; 71020; 71275; 74177; 74230; 76604; 76770; 80048; 80048 91; 80053; 80069; 80076; 80202; 81003; 82043; 82272; 82570; 82607; 82728; 82746; 82803; 82945; 82948; 83010 90; 83540; 83605; 83615; 83615 91; 83690; 83735; 83880; 83935; 84100; 84157; 84300; 84443; 84466; 84484; 84550; 85025; 85027; 85045; 85610; 86304; 86850; 86880; 87040; 87070; 87075; 87086; 87106; 87205; 87641; 88108; 88305; 89051; 92610 GN; 92611 GN; 93005; 93306; 93925; 93970; 94002; 94003; 94010; 94640; 94640 76; 94660; 94667; 94668; 94760; 94799; 97530 GO; 97530 GP; 99202; 99281; 99285; J0330; J0360; J0456; J0610; J0696; J1650; J1815; J1940; J1956; J2060; J2543; J2704; J2920; J2930; J3370; J3475; J3480; J7030; J7040; J7050; J7512; S0028